=== PATIENT | female | born 2000 | race Caucasian/White ===

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

== ENCOUNTER → 2022-10-23 16:27 | Outpatient (CLI) | payer OTHER, SELFPAY ==
--- NOTE | 2022-10-23 16:27 | MR_ITS ---
PROCEDURE INFORMATION: Exam: MR Lumbar Spine Without Contrast Exam date and time: 10/23/2022 4:26 PM Age: 22 years old Clinical indication: Low back pain; Additional info: Back pain with bilateral leg weakness TECHNIQUE: Imaging protocol: Magnetic resonance imaging of the lumbar spine without contrast. COMPARISON: CR SPLUMBLM XR lumbar spine 2-3V 08/17/2017 12:31 PM FINDINGS: Bones/joints: Alignment is near anatomic. The vertebral body heights are maintained. There is disc desiccation at L4-S1 without significant loss of disc space height. There is transitional anatomy with lumbarization of S1. The marrow signal is normal. Spinal cord: Visualized cord, conus medullaris and cauda equina are unremarkable without compression. L1-L2: No significant disc bulge or herniation. No severe spinal canal stenosis. No significant neural foraminal narrowing. L2-L3: No significant disc bulge or herniation. No severe spinal canal stenosis. No significant neural foraminal narrowing. L3-L4: No significant disc bulge or herniation. No severe spinal canal stenosis. No significant neural foraminal narrowing. L4-L5: L4-L5 minimal central focal disc protrusion is seen without stenosis. L5-S1: L5-S1 there is minimal diffuse disc bulging with superimposed central focal disc protrusion measuring 6 mm AP x 10 mm transverse. This mildly narrows the spinal canal. The disc material abuts the right descending S1 nerve root without significant compression or displacement. There is minimal bilateral facet arthrosis also seen with no neural foraminal narrowing. Soft tissues: Unremarkable. IMPRESSION: Mild L5-S1 degenerative disc disease with mild spinal canal stenosis at L5-S1. The disc material contacts the right descending S1 nerve root without significant compression or displacement.
== END ==
PROVIDERS: PCP Family Medicine; Visit Provider Family Medicine
DX: M54.9 Dorsalgia, unspecified (principal); M54.50 Low back pain, unspecified; R29.898 Other symptoms and signs involving the musculoskeletal system
CPT/HCPCS: 72148; 76376

== ENCOUNTER 2022-12-28 18:46 | Emergency (ER) | payer OTHER, SELFPAY ==
[2022-12-28 19:04] VITALS: BP 131/86; PULSE 82; RESP 16; TEMP 36.7; O2SAT 97; BMI 19.6
--- NOTE | 2022-12-28 19:04 | EXP.UTC ---
Discharge Plan Disposition Patient Disposition: Home, Self-Care Condition: Good Prescriptions Prescriptions: New amoxicillin [amoxicillin] 875 mg tablet 875 mg PO Q12H Qty: 20 0RF methylprednisolone 4 mg Tablets,Dose Pack 4 mg PO DIRECTED Qty: 21 0RF [id number] [Bromfed DM] 2-30-10 mg/5 mL Syrup 5 ml PO Q6H PRN (Reason: Cough) Qty: 240 0RF No Action Ubrelvy 100 mg tablet 100 mg PO ONCE PRN (Reason: migraine headache) Qty: 10 10RF Vraylar 1.5 mg capsule 1.5 mg PO DAILY Qty: 30 2RF prednisone 20 mg tablet 20 mg PO BID 5 Days Qty: 10 0RF naproxen 500 mg tablet 500 mg PO BID Qty: 30 0RF triamcinolone acetonide 0.025 % cream 1 applic topical BID Qty: 15 0RF cyclobenzaprine 10 mg tablet 10 mg PO Q8H PRN (Reason: muscle spasm) Qty: 60 0RF meloxicam 15 mg tablet 15 mg PO DAILY Qty: 30 3RF Referrals Follow up/Referrals: Michael Drummond APRN [Primary Care Provider] - See instructions Activity Restrictions/Add. Instructions Additional Instructions/Restrictions: Drink plenty of fluids. Take tylenol or ibuprofen for pain or fever. Take the medications as directed. Follow up with your regular doctor. GO TO THE ER FOR ANY WORSENING SYMPTOMS Clinical Impressions Clinical Impression: Otitis media Stand Alone Forms Stand Alone Forms: Work/School Release Instructions Patient Instructions: Middle Ear Infection Discharge ED Provider: Adán Cummings [facility] General Stated complaint: RT ear pain Time Seen by Provider: 12/28/22 19:04 History of Present Illness Provider Complaint: She states that she has had right ear pain and pressure for the past 4 days. Related Data Previous Rx's Medication Instructions Recorded cyclobenzaprine 10 mg tablet 10 mg PO Q8H PRN muscle spasm #60 12/01/21 tabs ubrogepant 100 mg tablet (Ubrelvy) 100 mg PO ONCE PRN migraine 06/09/22 headache #10 tabs meloxicam 15 mg tablet 15 mg PO DAILY #30 tabs 10/13/22 cariprazine 1.5 mg capsule 1.5 mg PO DAILY #30 caps 12/10/22 (Vraylar) naproxen 500 mg tablet 500 mg PO BID #30 tabs 12/10/22 prednisone 20 mg tablet 20 mg PO BID 5 days #10 tabs 12/10/22 triamcinolone acetonide 0.025 % 1 applic topical BID #15 grams 12/10/22 topical cream amoxicillin 875 mg tablet 875 mg PO Q12H #20 tabs 12/28/22 ftkfxlxrxlobggg-ixiglfsmmrlkcdx-JJ 5 ml PO Q6H PRN Cough #240 mL 12/28/22 2 mg-30 mg-10 mg/5 mL oral syrup (Bromfed DM) methylprednisolone 4 mg tablets in 4 mg PO DIRECTED #21 tabs 12/28/22 a dose pack Allergies Allergy/AdvReac Type Severity Reaction Status Date / Time No Known Allergies Allergy Verified 12/28/22 19:04 [facility] Disclaimer: The information contained in this section may have been updated after the patient was seen, as this information can be updated by other users. Medical History (Updated 12/28/22 @ 19:18 by Adán Cummings APRN) MDD (major depressive disorder), recurrent, with melancholic features Social History Smoking Status: Current every day smoker tobacco type: cigarettes packs per day: 1 and e-cigarettes (client claims to smoke cigarettes and vape.) alcohol intake: current substance use type: denies use current occupational status: employed and other Travel in the last 8 weeks: None housing: house number of children: 1 ROS Obtained: Yes All systems reviewed & no additional complaints except as documented Constitutional Constitutional: Denies chills, Reports fever(s) and Reports poor appetite Eyes Eyes: Denies eye discharge ENT Ears, Nose, Mouth, and Throat: Denies ear discharge, Reports otalgia, Denies hearing loss, Denies sinus pain and Reports sore throat Cardiovascular Cardiovascular: Denies chest pain and Denies dyspnea Respiratory Respiratory: Denies chest congestion, Reports cough and Denies dyspnea Gastrointestinal Gastrointestingal: Denies abdominal pain, diarrhea, nausea or vomiting
[2022-12-28 19:24] VITALS: BP 131/86; PULSE 82; RESP 17; TEMP 36.7
== END 2022-12-28 19:25 | disposition home or self-care (01) ==
PROVIDERS: Emergency Provider Nurse Practitioner Family; PCP Nurse Practitioner Family
DX: H66.93 Otitis media, unspecified, bilateral (principal); F17.210 Nicotine dependence, cigarettes, uncomplicated; F33.9 Major depressive disorder, recurrent, unspecified
CPT/HCPCS: 99212; 99214; G0463

== ENCOUNTER 2023-02-07 20:47 | Emergency (ER) | payer OTHER, SELFPAY ==
[2023-02-07 20:48] VITALS: BP 123/85; PULSE 93; RESP 20; TEMP 36.8; O2SAT 97; BMI 20.5
[2023-02-07 21:01] LABS: Coronavirus 19, PCR Not Detected (NotDetected); Influenza A, PCR Not Detected (NotDetected); Influenza B, PCR Not Detected (NotDetected)
--- NOTE | 2023-02-07 21:50 | HMH.EDGENADL ---
Discharge Plan Disposition Patient Disposition: Home, Self-Care Chief Complaint: Fever Prescriptions Prescriptions: No Action Ubrelvy 100 mg tablet 100 mg PO ONCE PRN (Reason: migraine headache) Qty: 10 10RF Vraylar 1.5 mg capsule 1.5 mg PO DAILY Qty: 30 2RF naproxen 500 mg tablet 500 mg PO BID Qty: 30 0RF cyclobenzaprine 10 mg tablet 10 mg PO TID PRN (Reason: muscle spasm) Qty: 60 0RF Referrals Follow up/Referrals: Michael Drummond APRN [Primary Care Provider] - See instructions Activity Restrictions/Add. Instructions Additional Instructions/Restrictions: At this time is felt you are safe to be discharged home. You likely have a virus for which symptoms typically have not days. For pain please take Tylenol and ibuprofen. If new or worsening symptoms please do not hesitate to return the emergency department. If persistent symptoms beyond 7 days please follow-up with your family doctor for continued evaluation. Clinical Impressions Clinical Impression: Acute viral syndrome, Myalgia Discharge ED Provider: Colin Woodall General Adult HPI General Chief complaint: Fever Stated complaint: headache,body aches,fever Time Seen by Provider: 02/07/23 21:20 Mode of Arrival: Ambulatory Source of Information: Patient Limitations: No Limitations Description of Symptoms (Recalled from ER Triage Doc. by RN): Pt presents with complaints of DAMICO, fever, and overall body aches since yesterday. History of Present Illness HPI narrative: Patient is a 22-year-old female with no significant past medical history presents emergency department for evaluation of fever. 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 She has intermittent cough, myalgias, sore throat. Symptoms intermittently refractory to Tylenol and ibuprofen. No other acute complaints at this time. Related Data Previous Rx's Medication Instructions Recorded ubrogepant 100 mg tablet (Ubrelvy) 100 mg PO ONCE PRN migraine 06/09/22 headache #10 tabs cariprazine 1.5 mg capsule 1.5 mg PO DAILY #30 caps 01/15/23 (Vraylar) cyclobenzaprine 10 mg tablet 10 mg PO TID PRN muscle spasm #60 01/21/23 tabs naproxen 500 mg tablet 500 mg PO BID #30 tabs 01/27/23 Allergies Allergy/AdvReac Type Severity Reaction Status Date / Time No Known Allergies Allergy Verified 01/27/23 11:30 [facility] Disclaimer: The information contained in this section may have been updated after the patient was seen, as this information can be updated by other users. Medical History MDD (major depressive disorder), recurrent, with melancholic features Social History Smoking Status: Current some day smoker tobacco type: cigarettes packs per day: 1 and e-cigarettes (client claims to smoke cigarettes and vape.) alcohol intake: current substance use type: denies use current occupational status: employed and other Travel in the last 8 weeks: None housing: house number of children: 1 ROS Obtained: Yes Systems reviewed as appropriate & no additional complaints except as documented Physical Exam General General appearance: alert and in no apparent distress Head Head exam: atraumatic and normocephalic Eye Eye exam: Present PERRL and EOMI ENT ENT exam: Present mucous membranes moist; Absent normal oropharynx (Erythematous posterior oropharynx, uvula midline, no asymmetric swelling, no purulence.) Neck Neck exam: Present normal inspection Chest Chest inspection: Present normal inspection and symmetric chest wall rise Respiratory Respiratory exam: Present normal lung sounds bilaterally; Absent respiratory distress, wheezes or stridor Cardiovascular Cardiovascular exam: Present regular rate and normal rhythm Extremities Exam Extremities exam: Present normal inspection Neurological Exam Neurological exam: Present alert Ps
[2023-02-07 22:13] LABS: Strep Scrn Group A (Rapid) Negative (Negative)
[2023-02-07 22:21] VITALS: BP 113/75; PULSE 73; RESP 16; TEMP 36.7; O2SAT 99
== END 2023-02-07 22:26 | disposition home or self-care (01) ==
PROVIDERS: Emergency Provider Emergency Medicine; PCP Nurse Practitioner Family
DX: M79.18 Myalgia, other site (principal); F33.9 Major depressive disorder, recurrent, unspecified; F17.210 Nicotine dependence, cigarettes, uncomplicated; F17.290 Nicotine dependence, other tobacco product, uncomplicated; R50.9 Fever, unspecified
CPT/HCPCS: 87430; 87636; 99283

== ENCOUNTER → 2023-03-12 12:00 | Outpatient (CLI) | payer OTHER, SELFPAY | PROVIDERS: PCP Nurse Practitioner Family; Visit Provider Nurse Practitioner Family | DX: M54.50 Low back pain, unspecified (principal) | CPT/HCPCS: 87086 ==

== ENCOUNTER → 2023-04-08 15:00 | Outpatient (POV) | payer OTHER, SELFPAY ==
[2023-04-08 15:30] VITALS: BP 121/83; PULSE 87; RESP 18; O2SAT 98; BMI 20.5
--- NOTE | 2023-04-08 15:58 | EXP.PAIN.OV ---
HPI Data of Consult Patient: new to practice Consult date: 04/08/23 Requesting Physician: Miranda Brwon APRN Primary Care Provider: Michael Drummond APRN Consult Narrative Reason for consult: Low back pain, bilateral leg pain History of present illness: Ms. Wallace is a 23 year old female who presents today as a new patient. She is a referral from Michael Cunningham's office. Today she rates her pain an 8 out of 10. Patient states her pain is all in her low back and bilateral legs. Patient describes this as an aching, throbbing sensation with occasional sharp shooting pains and numbness and tingling into her lower extremities. Patient states this has been going on for approximately 1 year and just worsened over time. Patient denies any specific trauma or injury that initially led to her symptoms. 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 Patient has tried [id number] Tylenol and ibuprofen along with heat and ice and topicals with minimal relief. Patient has been prescribed prednisone, naproxen and Flexeril with no additional change. Patient is starting physical therapy on the however has done at home exercising and stretching techniques for longer than 6 weeks with minimal relief. Patient did previously see a chiropractor however this made her symptoms worse. Patient is scheduled to see neurosurgery in April to review over her options. Patient states the pain does interfere with her ability perform activities of daily living such as cooking and cleaning. Her Tera has been reviewed and is appropriate. CC: Miranda Brown APRN [facility] Disclaimer: The information contained in this section may have been updated after the patient was seen, as this information can be updated by other users. Medical History MDD (major depressive disorder), recurrent, with melancholic features Family History (Updated 04/08/23 @ 15:06 by Ellen Madsen RN) Other Unknown family medical history Social History (Updated 04/08/23 @ 15:08 by Ellen Madsen RN) Smoking Status: Current some day smoker tobacco type: cigarettes packs per day: 1 and e-cigarettes (client claims to smoke cigarettes and vape.) alcohol intake: current substance use type: denies use current occupational status: employed Travel in the last 8 weeks: None housing: house number of children: 1 Review of Systems Review of Systems Review of systems:: pertinent systems reviewed and negative unless documented below Review of systems (narrative): Review of Systems: General: No recent weight changes, no fever, no sleep disturbances Respiratory: No cough, no shortness of air, no recurring pulmonary infections Cardiovascular/peripheral vascular: No chest pain, no palpitations, no edema, no shortness of breath Gastrointestinal: No new onset incontinence, normal bowel movements reported Genitourinary: No new onset incontinence Musculoskeletal: Low back pain, bilateral leg pain Psychiatric: [Normal mood/affect] Neurological: [Denies weakness in extremities], [denies balance issues] Meds Home Medications and Allergies Home Medications Medication Instructions Recorded Confirmed Type ubrogepant 100 mg tablet (Ubrelvy) 100 mg PO ONCE PRN migraine 06/09/22 04/08/23 Rx headache #10 tabs cariprazine 1.5 mg capsule 1.5 mg PO DAILY #30 caps 01/15/23 04/08/23 Rx (Vraylar) naproxen 500 mg tablet 500 mg PO BID #30 tabs 01/27/23 04/08/23 Rx cyclobenzaprine 5 mg tablet 5 mg PO TID PRN muscle spasm #90 03/12/23 04/08/23 Rx tabs nitrofurantoin 100 mg PO Q12H 10 days #20 caps 03/12/23 04/08/23 Rx monohydrate/macrocrystals 100 mg capsule (Macrobid) prednisone 20 mg tablet 20 mg PO BID 5 days #10 tabs 03/12/23 04/08/23 Rx New Prescriptions to Start Prescriptions: Allergies Allergy/Ad
== END ==
LOC: SC.PAIN 15:00
PROVIDERS: PCP Nurse Practitioner Family; Visit Provider Nurse Practitioner Family
DX: M51.16 Intervertebral disc disorders with radiculopathy, lumbar region (principal); M48.062 Spinal stenosis, lumbar region with neurogenic claudication
CPT/HCPCS: 99202; G0463

== ENCOUNTER 2023-12-31 21:57 | Emergency (ER) | payer OTHER, SELFPAY ==
[2023-12-31 21:59] VITALS: BP 121/86; PULSE 87; RESP 16; TEMP 36.6; O2SAT 100; BMI 22.1
--- NOTE | 2023-12-31 22:17 | XR_ITS ---
PROCEDURE INFORMATION: Exam: XR Lumbosacral Spine Exam date and time: 12/31/2023 10:39 PM Age: 23 years old Clinical indication: Low back pain TECHNIQUE: Imaging protocol: Radiologic exam of the lumbosacral spine. Views: 2 or 3 views. COMPARISON: MR LUMBAR SPINE WO CON 10/23/2022 4:26 PM FINDINGS: Bones/joints: Normal. No acute fracture. Normal alignment. Soft tissues: Unremarkable. IMPRESSION: No acute findings.
--- NOTE | 2023-12-31 22:22 | ED_ITS ---
Discharge Plan Disposition Patient Disposition: Home, Self-Care Prescriptions Prescriptions: New ketorolac 10 mg tablet 10 mg PO TID 5 Days Qty: 15 0RF No Action Ubrelvy 100 mg tablet 100 mg PO ONCE PRN (Reason: migraine headache) Qty: 10 10RF cyclobenzaprine 5 mg tablet 5 mg PO TID PRN (Reason: muscle spasm) Qty: 90 0RF prednisone 20 mg tablet 20 mg PO BID 5 Days Qty: 10 0RF nitrofurantoin monohyd/m-cryst [Macrobid] 100 mg capsule 100 mg PO Q12H 10 Days Qty: 20 0RF Rx Instructions: must administer with a meal/food Vraylar 1.5 mg capsule 1.5 mg PO DAILY Qty: 30 2RF naproxen 500 mg tablet 500 mg PO BID Qty: 30 0RF Referrals Follow up/Referrals: Michael Drummond APRN [Primary Care Provider] - See instructions Activity Restrictions/Add. Instructions Additional Instructions/Restrictions: Please return to PCP if symptoms continue or worsen. You may need physical therapy or further imaging. Please take medications as directed. Please return to the ED if any emergent symptoms occur. Clinical Impressions Clinical Impression: Low back pain Qualifiers: Chronicity: acute Back pain laterality: right Sciatica presence: with sciatica Sciatica laterality: sciatica of right side Qualified Code(s): M54.41 - Lumbago with sciatica, right side Lumbar strain Qualifiers: Encounter type: initial encounter Qualified Code(s): S39.012A - Strain of muscle, fascia and tendon of lower back, initial encounter Instructions Patient Instructions: DI for Low Back Pain Print Language Print Language: Urdu Discharge ED Provider: Shimon Kim General Adult HPI <Diana Alberts (ED), [employer] - Last Filed: 12/31/23 23:26> General Chief complaint: Back Pain/Injury Stated complaint: phy ref-back pain, leg pain Time Seen by Provider: 12/31/23 21:59 Mode of Arrival: Ambulatory Source of Information: Patient Limitations: No Limitations Description of Symptoms (Recalled from ER Triage Doc. by RN): pt reports that Wednesday was was carrying 2 cases of water and mis-stepped, now having low back pain that shoots down both legs, reports hurts to move. Took Tylenol and Motrin with no help, reports last dose of Tylenol at 1900 History of Present Illness HPI narrative: This is a 23-year-old female who presents today for bilateral low back pain that shoots down to both knees. She says it is a stabbing pain. She says on Wednesday she was carrying 2 cases of water and misstepped dropping in the water causing the pain in her back. She has continued to worsen with pain since Wednesday. She says she has pain with walking, standing, lying down and any movement. States that she has taken Tylenol and Motrin for the pain and it has done nothing for the pain. States that she called her primary care doctor that was on-call and they told her to come to the emergency room. Patient states that she feels like she may have numbness at times but most of the pain is shooting. She does have tenderness of her lumbar spine and pain in the muscles on both sides of her spine. She denies any urinary pain. No bowel or bladder changes. No other pain or complaints today. Related Data Previous Rx's ?Medication ?Instructions ?Recorded ubrogepant 100 mg tablet (Ubrelvy) 100 mg PO ONCE PRN migraine 06/09/22 headache #10 tabs cariprazine 1.5 mg capsule 1.5 mg PO DAILY #30 caps 01/15/23 (Vraylar) naproxen 500 mg tablet 500 mg PO BID #30 tabs 01/27/23 cyclobenzaprine 5 mg tablet 5 mg PO TID PRN muscle spasm #90 03/12/23 tabs nitrofurantoin 100 mg PO Q12H 10 days #20 caps 03/12/23 monohydrate/macrocrystals 100 mg capsule (Macrobid) prednisone 20 mg tablet 20 mg PO BID 5 days #10 tabs 03/12/23 ketorolac 10 mg tablet 10 mg PO TID 5 days #15 tabs 12/31/23 Allergies Allergy/AdvReac Type Severity Reaction Status Date / Time No Known Allergies Allergy Verified 03/12/23 09:05 [facility] <Diana Alberts (ED), [employer] - Last Filed: 12/31/23 23:26> [facility] Disclaimer: The information contained in this section may have been updated after the patient was seen, as this information can be updated by other users. Medical History MDD (major depressive disorder), recurrent, with melancholic features Family History (Updated 04/08/23 @ 15:06 by Ellen Madsen RN) Other Unknown family medical history Social History (Updated 04/08/23 @ 15:08 by Ellen Madsen RN) Smoking Status: Current every day smoker tobacco type: cigarettes packs per day: 1 and e-cigarettes (client claims to smoke cigarettes and vape.) alcohol intake: current alcohol intake frequency: holidays/special occasions only substance use type: denies use current occupational status: employed Travel in the last 8 weeks: None housing: house number of children: 1 <Diana Alberts (ED), [employer] - Last Filed: 12/31/23 23:26> ROS Obtained: Yes Systems reviewed as appropriate & no additional complaints ex cept as documented Please see HPI Constitutional Constitutional: Reports as per HPI Physical Exam <Diana Alberts (ED), [employer] - Last Filed: 12/31/23 23:26> General General appearance: alert and in distress (Appears to be in mild pain) Head Head exam: atraumatic and normocephalic Eye Eye exam: Present normal appearance, PERRL and EOMI Respiratory Respiratory exam: Present normal lung sounds bilaterally Cardiovascular Cardiovascular exam: Present regular rate, normal rhythm, normal heart sounds, +S1 and +S2 Abdominal Exam Abdominal exam: Present soft and normal bowel sounds Extremities Exam Extremities exam: Present normal inspection, full ROM and normal capillary refill Back Exam Back exam: Present normal inspection, tenderness (Low back tenderness with spinal tenderness) and paraspinal tenderness Neurological Exam Neurological exam: Present alert, oriented X3 and normal gait Skin Skin exam: Present warm, dry and intact Medical Decision Making <Diana Alberts (ED), [employer] - Last Filed: 12/31/23 23:26> Tera Inquiry Pt receiving controlled substance: No Vital Signs: 12/31/23 21:59 12/31/23 23:32 Temperature 98 F 98.2 F Temperature Source Oral Oral Pulse Rate 80 Pulse Rate [Right] 87 Respiratory Rate 16 16 Blood Pressure 124/78 Blood Pressure [Right Arm] 121/86 Blood Pressure Mean [Right Arm] 97 Blood Pressure Source Automatic Cuff Blood Pressure Source [Right Arm] Automatic Cuff Blood Pressure Position Sitting Blood Pressure Position [Right Arm] Sitting 02 Sat by Pulse Oximetry 100 Oxygen Delivery Method Room Air Room Air Lab Data Lab Results 12/31/23 22:33: Urine Color Yellow, Urine Appearance Clear, Urine pH 6.0, Ur Specific [place] 1.020, Urine Protein Negative, Urine Glucose (UA) Negative, Urine Ketones Negative, Urine Blood Trace-i, Urine Nitrate Negative, Urine Bilirubin Negative, Urine Urobilinogen 0.2, Ur Leukocyte Esterase Trace, Urine RBC Occasional, Urine WBC 5-10, Ur Squamous Epith Cells 10-20, Urine Bacteria 4+, Urine HCG, Qual Negative Orders (Tests/Meds): ED MEDICATIONS Discontinued Medications Generic Name Dose Route Start Last Admin Trade Name Nhung PRN Reason Stop Dose Admin Ketorolac Tromethamine 30 mg 12/31/23 22:17 12/31/23 22:36 Ketorolac 30mg/Ml Vial IM 12/31/23 22:18 30 mg ONCE ONE Administration Lidocaine 1 each 12/31/23 22:21 12/31/23 22:36 Lidocaine 5% Transdermal Patch TP 12/31/23 22:22 1 each ONCE ONE Administration Methocarbamol 500 mg 12/31/23 22:20 12/31/23 22:36 Methocarbamol 500mg Tablet PO 12/31/23 22:21 500 mg ONCE ONE Administration ORDERS Category Date Time Status Lumbar spine XR 2-3 views [XR lumbar spine 2-3V] Stat Exams 12/31/23 22:17 Completed Urinalysis-Acute [Urinalysis and Microscopic] Stat Lab 12/31/23 22:33 Completed Urine , HCG Qual. Routine Lab 12/31/23 22:33 Completed Urine Culture Stat Micro 12/31/23 22:33 Received Medical Decision Narrative: Insert review patient is a 23-year-old female presenting to the emergency department for evaluation of [low back pain]. Patient is [hemodynamically stable and nontoxic-appearing upon arrival, afebrile]. Differential diagnosis includes[muscle spasms, nerve impingement, lumbar pain, among others]. Workup will be conducted with lumbar x-ray, urinalysis with test and pain medications. Initial inventions include lumbar x-ray, Toradol, lidocaine patch and Robaxin for pain. Patient did have a urine that showed trace leukocytes and 4+ bacteria. She has no symptoms including no burning with urination no freq uency and no urgency. [Imaging informally interpreted by me and remarkable for no acute findings. [Formal imaging read remarkable for no acute findings. Upon repeat evaluation [patient's pain is improved, appears better. Patient is going to follow with her PCP for additional interventions such as physical therapy or MRI if pain persist or continues. <Shimon Kim MD - Last Filed: 12/31/23 23:40> Vital Signs: 12/31/23 21:59 12/31/23 23:32 Temperature 98 F 98.2 F Temperature Source Oral Oral Pulse Rate 80 Pulse Rate [Right] 87 Respiratory Rate 16 16 Blood Pressure 124/78 Blood Pressure [Right Arm] 121/86 Blood Pressure Mean [Right Arm] 97 Blood Pressure Source Automatic Cuff Blood Pressure Source [Right Arm] Automatic Cuff Blood Pressure Position Sitting Blood Pressure Position [Right Arm] Sitting 02 Sat by Pulse Oximetry 100 Oxygen Delivery Method Room Air Room Air Lab Data Lab Results 12/31/23 22:33: Urine Color Yellow, Urine Appearance Clear, Urine pH 6.0, Ur Specific [place] 1.020, Urine Protein Negative, Urine Glucose (UA) Negative, Urine Ketones Negative, Urine Blood Trace-i, Urine Nitrate Negative, Urine Bilirubin Negative, Urine Urobilinogen 0.2, Ur Leukocyte Esterase Trace, Urine RBC Occasional, Urine WBC 5-10, Ur Squamous Epith Cells 10-20, Urine Bacteria 4+, Urine HCG, Qual Negative Orders (Tests/Meds): ED MEDICATIONS Discontinued Medications Generic Name Dose Route Start Last Admin Trade Name Nhung PRN Reason Stop Dose Admin Ketorolac Tromethamine 30 mg 12/31/23 22:17 12/31/23 22:36 Ketorolac 30mg/Ml Vial IM 12/31/23 22:18 30 mg ONCE ONE Administration Lidocaine 1 each 12/31/23 22:21 12/31/23 22:36 Lidocaine 5% Transdermal Patch TP 12/31/23 22:22 1 each ONCE ONE Administration Methocarbamol 500 mg 12/31/23 22:20 12/31/23 22:36 Methocarbamol 500mg Tablet PO 12/31/23 22:21 500 mg ONCE ONE Administration ORDERS Category Date Time Status Lumbar spine XR 2-3 views [XR lumbar spine 2-3V] Stat Exams 12/31/23 22:17 Completed Urinalysis-Acute [Urinalysis and Microscopic] Stat Lab 12/31/23 22:33 Completed Urine , HCG Qual. Routine Lab 12/31/23 22:33 Completed Urine Culture Stat Micro 12/31/23 22:33 Received Medical Decision Narrative: Insert review patient is a 23-year-old female presenting to the emergency department for evaluation of [low back pain]. Patient is [hemodynamically stable and nontoxic-appearing upon arrival, afebrile]. Differential diagnosis includes[muscle spasms, nerve impingement, lumbar pain, among others]. Workup will be conducted with lumbar x-ray, urinalysis with test and pain medications. Initial inventions include lumbar x-ray, Toradol, lidocaine patch and Robaxin for pain. Patient did have a urine that showed trace leukocytes and 4+ bacteria. She has no symptoms including no burning with urination no frequency and no urgency. [Imaging informally interpreted by me and remarkable for no acute findings. [Formal imaging read remarkable for no acute findings. Upon repeat evaluation [patient's pain is improved, appears better. Patient is going to follow with her PCP for additional interventions such as physical therapy or MRI if pain persist or continues. I was consulted by the NAVIN, and we discussed the complexity of the problems being addressed.I approved the treatment and management plan for this patient?s care in the Emergency Department, thus performing a substantive portion of the medical decision making.Signed, Shimon Kim MD Critical Care <Diana Alberts (ED), [employer] - Last Filed: 12/31/23 23:26> Critical Care Time Critical Care Time: No
[2023-12-31] MEDS: METHOCARBAMOL 500MG TABLET 500 MG PO (22:36)
[2023-12-31] MEDS: KETOROLAC 30MG/ML VIAL 30 MG IM (22:36)
[2023-12-31] MEDS: LIDOCAINE 5% TRANSDERMAL PATCH 1 EACH TP (22:36)
[2023-12-31 22:37] LABS: Microscopic, Urine URINE MICROSCOPIC (MICROSCOPIC)
[2023-12-31 22:39] LABS: Appearance,Urine CLEAR (Clear); Bilirubin,Urine Negative (Negative); Blood, Urine TRACE-I (Negative); Color,Urine YELLOW (Yellow); Glucose,Urine (UA) Negative (Negative); Ketones,Urine Negative (Negative); Leukocyte Esterase,Urine TRACE (Negative); Nitrate,Urine Negative (Negative); Protein,Urine Negative (Negative); Urobilinogen,Urine 0.2 EU/dl (0.2)
[2023-12-31 22:43] LABS: Urine Pregnancy, HCG Qual. Negative (Negative)
[2023-12-31 22:53] LABS: RBC,Urine Occasional #/hpf (0-3)
[2023-12-31 22:54] LABS: Bacteria,Urine 4+ /lpf
[2023-12-31 23:32] VITALS: BP 124/78; PULSE 80; RESP 16; TEMP 36.8; O2SAT 100
--- NOTE | 2024-01-06 09:44 | PC.NURSE ---
URINE CULTURE DISCUSSED WITH DR. MENCHACA. SPOKE WITH PT. PT CONTINUES TO HAVE BACK PAIN. ABX SENT TO PHARMACY BY DR MENCHACA
== END 2023-12-31 23:33 | disposition home or self-care (01) ==
PROVIDERS: Nurse Practitioner; Emergency Provider Emergency Medicine; PCP Nurse Practitioner Family
DX: M54.41 Lumbago with sciatica, right side (principal); S39.012A Strain of muscle, fascia and tendon of lower back, initial encounter; M25.561 Pain in right knee; M25.562 Pain in left knee; F17.210 Nicotine dependence, cigarettes, uncomplicated; X50.9XXA Other and unspecified overexertion or strenuous movements or postures, initial encounter
CPT/HCPCS: 72100; 81001; 81025; 87086; 87088; 96372; 99285; J1885

== ENCOUNTER 2024-06-12 18:02 | Emergency (ER) | payer OTHER, SELFPAY ==
[2024-06-12 18:03] VITALS: BP 114/75; PULSE 99; RESP 18; TEMP 37.2; O2SAT 98; BMI 21.1
--- NOTE | 2024-06-12 19:54 | HMH.EDGENADL ---
Discharge Plan Disposition Patient Disposition: Home, Self-Care Prescriptions Prescriptions: New amoxicillin-pot clavulanate 875-125 mg tablet 1 tab PO BID 7 Days Qty: 14 0RF chlorhexidine gluconate [Periogard] 0.12 % mouthwash 15 ml buccal BID Qty: 1893 0RF No Action Ubrelvy 100 mg tablet 100 mg PO ONCE PRN (Reason: migraine headache) Qty: 10 10RF cyclobenzaprine 5 mg tablet 5 mg PO TID PRN (Reason: muscle spasm) Qty: 90 0RF prednisone 20 mg tablet 20 mg PO BID 5 Days Qty: 10 0RF nitrofurantoin monohyd/m-cryst [Macrobid] 100 mg capsule 100 mg PO Q12H 10 Days Qty: 20 0RF Rx Instructions: must administer with a meal/food Vraylar 1.5 mg capsule 1.5 mg PO DAILY Qty: 30 2RF naproxen 500 mg tablet 500 mg PO BID Qty: 30 0RF ketorolac 10 mg tablet 10 mg PO TID 5 Days Qty: 15 0RF doxycycline hyclate 100 mg tablet 100 mg PO BID 10 Days Qty: 20 0RF Referrals Follow up/Referrals: Yesica Fishman APRN [Primary Care Provider] - See instructions Activity Restrictions/Add. Instructions Additional Instructions/Restrictions: Called around dentists in the area to have follow-up for removal of teeth 30 and 31. Call your family doctor to establish care for this visit to the emergency department and schedule follow-up within 48 hours to ensure improvement. If you have any worsening of your condition or any other concerning signs or symptoms, return to the emergency department or your primary care doctor for further evaluation. Oral rinse twice daily, antibiotic twice daily. Clinical Impressions Clinical Impression: Pain, dental Print Language Print Language: [place] Citizen Discharge ED Provider: Murtaza Thurman General Adult [facility] General Chief complaint: Dental/Oral Stated complaint: tooth pain rt side with neck pain Time Seen by Provider: 06/12/24 19:14 Mode of Arrival: Ambulatory Source of Information: Patient Limitations: No Limitations Description of Symptoms (Recalled from ER Triage Doc. by RN): PT REPORTS DENTAL PAIN TO RIGHT LOWER JAW FROM BROKEN TEETH FOR ABOUT 3 DAYS. STATES SHE WAS SEEN AT [facility] [place] LAST NIGHT AND WAS GIVEN NUMBING SHOT IN JAW STARTED ON ABX. REPORTS PAIN RADIATES TO EAR AND NECK History of Present Illness HPI narrative: Please note that above description of symptoms, in this electronic medical record under categorization of recalled from ER triage doctor by RN are reflective of an initial nursing assessment, however, is not reflective of my full history and physical exam that was personally taken and clarified. Consequentially, this preceding description of symptoms, which may include the patient's categorized chief complaint in the EMR, do not reflect my personal clinical impression, and the ultimate description of history of present illness and patient stated complaints should be deferred to this section of the note. Unless stated otherwise or congruent with this section of the note, additional signs, symptoms, or incongruence should be interpreted as inaccurate with my clinical impression. Related Data Previous Rx's ?Medication ?Instructions ?Recorded ubrogepant 100 mg tablet (Ubrelvy) 100 mg PO ONCE PRN migraine 06/09/22 headache #10 tabs cariprazine 1.5 mg capsule 1.5 mg PO DAILY #30 caps 01/15/23 (Vraylar) naproxen 500 mg tablet 500 mg PO BID #30 tabs 01/27/23 cyclobenzaprine 5 mg tablet 5 mg PO TID PRN muscle spasm #90 03/12/23 tabs nitrofurantoin 100 mg PO Q12H 10 days #20 caps 03/12/23 monohydrate/macrocrystals 100 mg capsule (Macrobid) prednisone 20 mg tablet 20 mg PO BID 5 days #10 tabs 03/12/23 ketorolac 10 mg tablet 10 mg PO TID 5 days #15 tabs 12/31/23 doxycycline hyclate 100 mg tablet 100 mg PO BID 10 days #20 tabs 01/06/24 amoxicillin 875 mg-potassium 1 tab PO BID 7 days #14 tabs 06/12/24 clavulanate 125 mg tablet chlorhexidine gluconate 0.12 % 15 ml buccal BID #1,893 mL 06/12/24 mouthwash (Periogard) Allergies Allergy/AdvReac Type Severity Reaction Status Date / Time No Known Allergies Allergy Verified 03/12/23 09:05 [facility] Disclaimer: The information contained in this section may have been updated after the patient was seen, as this information can be updated by other users. Medical History MDD (major depressive disorder), recurrent, with melancholic features Family History (Updated 04/08/23 @ 15:06 by Ellen Madsen RN) Other Unknown family medical history Social History (Updated 04/08/23 @ 15:08 by Ellen Madsen RN) Smoking Status: Current every day smoker tobacco type: cigarettes packs per day: 1 and e-cigarettes (client claims to smoke cigarettes and vape.) alcohol intake: current alcohol intake frequency: holidays/special occasions only substance use type: denies use current occupational status: employed Travel in the last 8 weeks: None housing: house number of children: 1 Have you lived/traveled outside US in past 30 days?: No Contact w/someone who lives/traveled outside US past 30 days?: No Exposure to someone with infectious disease in past 14 days?: No Do you have a fever (greater than 100.4 F or 38 C)?: No Have you tested positive for COVID-19: No Exposed to someone with COVID-19 in past 14 days?: No Do you have a sore throat?: No Do you have a cough?: No Do you have any weakness?: No Do you have any diarrhea?: No Are you experiencing any unusual bleeding?: No Do you have any muscle aches/pain?: No Do you have any abdominal pain?: No Are you experiencing loss of taste or smell?: No Other Medical History Have you received the Flu Vaccine for this season: No Have you received the Pneumonia Vaccine: No ROS Obtained: Yes All systems reviewed & no additional complaints except as documented Physical Exam General General appearance: alert Head Head exam: atraumatic and normocephalic Eye Eye exam: Present normal appearance, PERRL and EOMI ENT ENT exam: Present other (Poor dentition. Multiple cracked teeth. No evidence of tonsillitis, exudate, pharyngeal erythema, uvular deviation, palatal swelling, trismus, external neck swelling, submental induration, dental abscess, angioedema, or other abnormal alejandrina pharyngeal findings) Neck Neck exam: Present normal inspection, full ROM and trachea midline Respiratory Respiratory exam: Absent respiratory distress, wheezes, stridor, accessory muscle use or prolonged expiratory phase Cardiovascular Cardiovascular exam: Present other (Pulses equal symmetric in upper and lower extremities) Abdominal Exam Abdominal exam: Present soft; Absent distention, tenderness or pulsatile mass Extremities Exam Extremities exam: Absent edema Neurological Exam Neurological exam: Present alert, oriented X3 and CN II-XII intact; Absent motor sensory deficit Skin Skin exam: Present warm and dry; Absent diaphoresis or erythema Medical Decision Making Medical Records Medical records reviewed: Yes I reviewed the patient's medical records. Screening: Per USPSTF and CDC recommendations, given the prevalence of disease in our region, it is our hospital?s policy to screen for HIV and viral Hepatitis for all patients aged 18 and over and those with ongoing risk factors. Tera Inquiry Pt receiving controlled substance: No Tera was queried for this patient: No Vital Signs: 06/12/24 18:03 Temperature 98.9 F Temperature Source Oral Pulse Rate [Radial] 99 H Respiratory Rate 18 Blood Pressure [Left Arm] 114/75 Blood Pressure Mean [Left Arm] 88 Blood Pressure Source [Left Arm] Automatic Cuff Blood Pressure Position [Left Arm] Sitting 02 Sat by Pulse Oximetry 98 Oxygen Delivery Method Room Air Orders (Tests/Meds): ED MEDICATIONS Discontinued Medications Generic Name Dose Route Start Last Admin Trade Name Freq PRN Reason Stop Dose Admin Amoxicillin/Clavulanate Potassium 1 each 06/12/24 19:41 Amoxicillin/Clavulanate Potassium 875/125mg Tablet PO 06/12/24 19:42 ONCE ONE Lidocaine HCl 15 ml 06/12/24 19:41 Lidocaine 2% Viscous Irene 15ml Udc PO 06/12/24 19:42 ONCE ONE ORDERS Category Date Time Status HIV Combo Stat Lab 06/12/24 18:23 Ordered Hepatitis C Ab Qual. W/ RFX Stat Lab 06/12/24 18:23 Ordered Medical Decision Narrative: This is a 24-year-old female presenting with dental pain. Patient states that this pain has been getting worse over the last couple of days, went to an outside ED where they did block and gave her antibiotic, amoxicillin. States that it has not gotten any better and block wore off, coming in with pain. History obtained with patient. On physical exam, very well-appearing. She does have poor dentition, numerous cracked teeth. No evidence of tonsillitis, exudate, pharyngeal erythema, uvular deviation, palatal swelling, trismus, external neck swelling, submental induration, dental abscess, angioedema, or other abnormal alejandrina pharyngeal findings no cervical lymphadenopathy. No trismus, etc. It was explained to patient that not much can be done for the area, she needs to see a dentist. She was agreeable to this plan. We did give her dental balls for pain as well as Augmentin here, I feel Augmentin is more appropriate for coverage of oral bacteria. Patient agreeable to this plan. Nothing to drain, so no procedures were performed. I feel this is consistent with early periapical abscess versus pulpitis given physical exam. Because patient at baseline without signs or symptoms of clinical decompensation, deemed appropriate for discharge. I discussed my clinical impression with patient and answered all questions. At this time, the evidence for any other entities in the differential is insufficient to warrant any further testing or ED observation. This was explained as well. Advisory was given that persistent or worsening symptoms require further evaluation. I confirmed the understanding of this discussion. Store Cashier disclaimer Much of this encounter note is an electronic pipe bending machine operator spoken language to printed text. Electronic pipe bending machine operator of the spoken language may permit errors. Although I have reviewed the note, some errors may still exist. Critical Care Critical Care Time Critical Care Time: No
[2024-06-12] MEDS: LIDOCAINE 2% VISCOUS SOL 15ML UDC 15 ML PO (20:08)
[2024-06-12] MEDS: AMOXICILLIN/CLAVULANATE POTASSIUM 875/125MG TABLET 1 EACH PO (20:08)
[2024-06-12 20:21] VITALS: BP 113/76; PULSE 92; RESP 18; TEMP 37.2; O2SAT 99
== END 2024-06-12 20:22 | disposition home or self-care (01) ==
PROVIDERS: Emergency Provider Emergency Medicine; PCP Nurse Practitioner Family
DX: K08.89 Other specified disorders of teeth and supporting structures (principal); K03.81 Cracked tooth
CPT/HCPCS: 99282

== ENCOUNTER 2025-02-02 10:33 | Outpatient (CLI) | payer OTHER, SELFPAY ==
--- OUTSIDE RECORDS SUMMARY | 2005-01-06 | XMS_ITS | Encounter Summary ---
Author Organization [facility] Address [address] [place] [id number] Care Team Providers Care Business Applications Manager Name Role Phone Unavailable Primary Care Provider Unavailabl e Encounter Details Date Type Department Care Team (Late st Contact Info) Description 01/06/2005 Hospital Encounter [facility] Division of Pediatric Otolaryngology [address] [place] [phone] Social History Tobacco Use Types Packs/Day Years Used Date Smoking Tobacco: Every Day Smokeless Tobacco: Never Alcohol Use Standard Drinks/Week Comments Never 0 (1 standard drink = 0.6 oz pur e alcohol) AUDIT-C Answer Date Recorded Frequency of Alcohol Consumption Never 08/12/2018 Average Number of Drinks Not on file 019 Frequency of Binge Drinking Not on file 07/25 Intimate Partner Violence Answer Date R ecorded If you are in a relationship , do you feel safe in that relationship? Yes 08/12/2018 Safe in relationship? (18 and older) Not on file 08/12/2018 Safety and Environment Answer Date Seth rded Do you have any concerns of physical abuse, sexual abuse, or neglect of your child? No 08/12/2018 Is an adult hurting you or your family? No 08/12/2018 Has someone ever touched you in a sexual way that was not ok with you? No 08/12/2018 Someone hurting you or family (18 and older) Not on file 08/12/2018 Historical abuse worry Not on file 9 If you have firearms in the home, are they all in locked storage AND unloaded? Not on file 08/12/2018 Comments Unknown Sex and Gender Information Value Date Recorded Sex Assigned at Not on file Legal Sex Female 5:18 AM EST Gender Identity Not on file Sexual Orientation Not on file documented as of this encounter Functional Status documented as of this encounter Plan of Treatment Not on file documented as of this encounter Visit Diagnoses Not on filedocumented in this encounter
--- OUTSIDE RECORDS SUMMARY | 2005-01-16 | XMS_ITS | Encounter Summary ---
Author Organization [facility] Address [address] [place] [id number] Care Team Providers Care Hanger Off Name Role Phone Unavailable Primary Care Provider Unavailabl e Encounter Details Date Type Department Care Team (Late st Contact Info) Description 01/16/2005 Hospital Encounter [facility] Division of Pediatric General and Thoracic Surgery [address] [place] [phone] Social History Tobacco Use Types Packs/Day [...] Functional Status documented as of this encounter Miscellaneous Notes * Operative Report - Richard Zamora III, MD - 01/16/2005 9:09 AM EDTDATE OF OPERATION: 01/16/2005 SURGEON(S): Richard Zamora III, M.D./Grover Palmer MD PREOPERATIVE DIAGNOSIS: Adenotonsillar hypertrophy. POSTOPERATIVE DIAGNOSIS: Adenotonsillar hypertrophy. OPERATION PERFORMED: Adenotonsillar hypertrophy with airway obstruction. INDICATIONS: Adenotonsillectomy. PROCEDURE: After the child was brought to the operating room and placed in the supine position on the operating table, a general anesthetic was administered. When a suitable plane of anesthesia had been reached, the Elyse-Emmanuel mouth gag was inserted and opened to its full extent. There was no evidence of a submucus cleft palate nor of abnormal pulsatile vessels. The adenoids and tonsils were removed with electrocautery and hemostasis obtained. The child tolerated the procedure well and returned to recovery in good condition. Richard Zamora III, MD Signed via Electronic Authentication by: Richard Zamora III, MD 01/19/2005 18:48 CM/mqa A A Doc #[id number] cc: MD Richard Melendez III, MD [address] [place] [address] documented in this encounter Plan of Treatment Not on file documented as of this encounter Visit Diagnoses Not on filedocumented in this encounter
--- OUTSIDE RECORDS SUMMARY | 2025-02-05 10:37 | XMS_ITS | Clinical Summary ---
Author Organization [facility] Address [address] [place] [id number] Care Team Providers Care Front Desk Auxiliary Name Role Phone Shravan Ren MD Primary Care Provider [phone] Source Comments [facility] is fully rolled [facility] with thefollowing exceptions:[facility] Allergies No known active allergies Medications lamoTRIgine (LaMICtal) 100 MG tablet Take 100 mg by mouth 1 time a day. Active medroxyPROGESTER one Acetate (DEPO-PROVERA) 150 MG/ML injection Active cloNIDine (CATAPRES) 0.1 MG tablet Take 0.1 mg by mouth 1 time a day. Active Active Problems Problem Noted Date Diagnosed Date Abnormal uterine bleeding 08/30/2018 Dysmenorrhea 08/30/2018 Chronic pelvic pain in female 08/30/2018 Crohn's disease without complication 08/30/2018 Family History Medical History Relation Name Comments Hypercholesterolemia Father Hypertension Father Coronary Artery Disease Maternal Grandmother stents, bypasses Migraines Maternal Grandmother Myocardial Infarction Maternal Grandmother Migraines Mother Diabetes Mellitus Paternal Grandfather Irregular heartbeat Sister Bleeding Disorder Neg Hx DVT Neg Hx Pulmonary Embolism Neg Hx Relation Name Status Comments Father Alive Maternal Grandmother Mother Paternal Grandfather Sister Alive Social History Tobacco Use Types Packs/Day Years [...] on file Sexual Orientation Not on file Last Filed Vital Signs Vital Sign Reading Time Taken Comments Blood Pressure 125/77 08/24/2018 9:33 AM EDT Pulse 118 08/24/2018 9:33 AM EDT Temperature - - Respiratory Rate 16 08/24/2018 9:29 AM EDT Oxygen Saturation 100% 08/24/2018 9:29 AM EDT Inhaled Oxygen Concentration - - Weight 54.4 kg (120 lb) 08/24/2018 9:29 AM EDT Height 168 cm (5' 6.14 ) 08/24/2018 9:29 AM EDT Body Mass Index 19.29 08/24/2018 9:29 AM EDT Plan of Treatment Health Maintenance Due Date Last Done Comments MMR IMMUNIZATION (1 of 1 - S tandard series) 2002 DTAP/Tdap/Td IMMUNIZATION (1 - Tdap) 2008 VARICELLA IMMUNIZATION (1 of 2 - 13+ 2-dose series) 2014 HPV IMMUNIZATION (1 - 3-dose series) 2016 MENINGOCOCCAL B VACCINE (1 o f 2 - Standard) 2017 HEPATITIS B IMMUNIZATION (1 of 3 - 19+ 3-dose series) 2020 AMB SEASONAL FLU VACCINE (#1) 12/25/2024 COVID-19 Vaccine (1 - 2023-2 5 season) 2024 HIB IMMUNIZATION Aged Out No longer e ligible based on patient's age to complete this topic IPV IMMUNIZATION Aged Out No longer e ligible based on patient's age to complete this topic MCV4 IMMUNIZATION Aged Out No longer eligible based on patient's age to complete this topic PNEUMOCOCCAL IMMUNIZATION Aged Out No longer eligible based on patient's age to complete this topic Respiratory Syncytial Virus (RSV) <20mo Aged Out No longer eligible b ased on patient's age to complete this topic Insurance Care Teams Front Desk Auxiliary Relationship Specialty Start Date End Date Shravan Ren MD [address] [place] [address] [address] [place] [address] PCP - General External Pediatrics 06/07/18
--- OUTSIDE RECORDS SUMMARY | 2025-02-05 10:37 | XMS_ITS ---
Author Organization [facility] Address [address] [place] [id number] Phone Care Team Providers Care Nuclear Criticality Safety Engineer Name Role Phone Implementation Analyst Unavailable Unavailable Conditions or Problems No information available. Medications No information available. Medications Administered No information available. Allergies, Adverse Reactions, Alerts No information available. Results No information available. Plan of Care No information available. Procedures No information available. Vital Signs No information available. Immunizations No information available. Advance Directives No information available.
--- OUTSIDE RECORDS SUMMARY | 2025-02-05 10:37 | XMS_ITS | Clinical Summary ---
Author Organization Healthcare Address [address] [place] [address] Care Team Providers Care Cerner Analyst Name Role Phone Bhanu Michael Cox APRN Primary Care Provider [phone] Allergies No known active allergies Medications nicotine (Nicoderm CQ) 21 MG/24HR patch Place 1 patch on the skin 1 (one) time each day if needed (nicotine craving). 30 patch 11 08/21/2021 Active 28-0.8 MG tablet Take 1 tablet by mouth 1 (one) time each day. 30 tablet 08/21/2021 Active Vraylar 1.5 MG capsule Take 1 capsule (1.5 mg) by mouth 1 (one) time each day. 03/08/2023 Active cyclobenzaprine (Flexeril) 5 MG tablet Take 1 tablet (5 mg) by mouth 3 (three) times a day if needed. 03/12/2023 Active medroxyPROGESTE Ryland (Depo-Provera) 150 MG/ML suspension prefilled syringe injection syringe Active meloxicam (Mobic) 15 MG tablet Take 1 tablet (15 mg) by mouth 1 (one) time each day. 10/13/2022 Active methylPREDNISol one (Medrol Dospak) 4 MG tablets TAKE BY MOUTH DIRECTED ON INSIDE OF PACKAGE 12/29/2022 Active naproxen (Naprosyn) 500 MG tablet Take 1 tablet (500 mg) by mouth 2 (two) times a day. 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, fetus 1 05/04/2021 Resolved Problems Problem Noted Date Diagnosed Date Resolved Date Second 08/18/2021 01/14/2025 Social History Tobacco Use Types Packs/Day Years Used Date Smoking Tobacco: Every Day Cigarettes Smokeless Tobacco: Current Tobacco Cessation:Ready to Q uit: Not Asked; Counseling Given: Not Answered Alcohol Use Standard Drinks/Week Comments Not Currently 0 (1 standard drink = 0.6 oz pur e alcohol) Comments Unknown Sex and Gender Information Value Date Recorded Sex Assigned at Not on file Legal Sex Female 4:03 PM EST Gender Identity Not on file Sexual Orientation Not on file Last Filed Vital Signs Vital Sign Reading Time Taken Comments Blood Pressure 118/78 03/17/2023 11:22 AM EST Pulse 66 08/21/2021 7:29 AM EDT Temperature 36.6 C (97.8 F) 08/21/2021 7:29 AM EDT Respiratory Rate 16 08/21/2021 7:29 AM EDT Oxygen Saturation 97% 08/21/2021 7:29 AM EDT Inhaled Oxygen Concentration - - Weight 58.1 kg (128 lb) 03/17/2023 11:22 AM EST Height 167.6 cm (5' 6 ) 03/17/2023 11:22 AM EST Body Mass Index 20.66 03/17/2023 11:22 AM EST Plan of Treatment Health Maintenance Due Date Last Done Comments [facility]-Depression Screening 2001 [facility]-/Child/Adol SDOH Screenings 2001 [facility]-Varicella Vaccines (2 of 2 - 2-dose childhood series) 2005 04/05/2002 HPV Vaccines (1 - 3-dose series) 2016 [facility]-Hepatitis A Vaccines (2 of 2 - 2-dose series) 10/06/2017 04/07/2017 [facility]- SDOH Screenings 2019 [facility]-Adult SDOH Screenings 2019 [facility]-Pap Smear 2022 [facility]-DTaP,Tdap,and Td Vaccines (7 - Td or Tdap) 11/29/2022 11/29/2012, 2005, 06/07/2002, Additional history exists [id number] Vaccine ( season) 2024 12/24/2021 [facility]-Influenza Vaccine (#1) 2024 [facility]-Zoster Vaccines (1 of 2) 2051 04/05/2002 [facility]-Hepatitis B Vaccines Completed 002, 2001, 2001 [facility]-Pneumococcal Vaccine: Pediatrics (0 to 5 Years) and At-Risk Patients (6 to 49 Years) Aged Out 04/05/2002, 2001, 2001 No longer eligible based on patient's age to complete this topic [facility]-HIB Vaccines Completed 2005, 02/2002, 2001, Additional history exists [facility]-IPV Vaccines Completed 2005, 02/2002, 2001, Additional history exists [facility]-Rotavirus Vaccines Aged Out No lo nger eligible based on patient's age to complete this topic Insurance [employer] Advance Directives * Full Code (Latest Code Status on File) Date Activated Date Inactivated Comments 08/18/2021 12:18 PM 08/21/2021 3:30 PM Question Answer Comments Patient has decision-making capacity? Yes Care Teams Cerner Analyst Relationship Specialty Start Date End Date Michael Drummond APRN [address] [place] [address] MOODY Rios [id number] [facility] - General 03/17/23
--- OUTSIDE RECORDS SUMMARY | 2025-02-05 10:37 | XMS_ITS | Clinical Summary ---
Author Organization [facility] Address [address] [place] [address] Phone Care Team Providers Care Data Analyst Name Role Phone Shravan Ren MD Primary Care Provider [phone] Allergies No known active allergies Medications cyclobenzaprine (FLEXERIL) 10 mg Oral Tablet Take 1 Tab by mouth 3 times daily as needed for Muscle spasms. 10 Tab 04/15/2017 Active busPIRone (BUSPAR) 5 mg Oral Tablet Take 5 mg by mouth 2 times daily. Active citalopram (CELEXA) 10 mg Oral Tablet Take 10 mg by mouth daily. Active dicyclomine (BENTYL) 10 mg Oral Capsule Take 1 Capsule by mouth 3 times daily. 90 Capsule 10/20/2024 2:43 PM EDT 10/20/2024 Active oxyCODONE (ROXICODONE) 5 mg Oral Tablet Take 1 Tablet by mouth every 6 hours as needed for Acute Pain (R52). 12 Tablet 10/20/2024 2:43 PM EDT 10/20/2024 Active Active Problems Problem Noted Date Diagnosed Date Normocytic anemia 10/19/2024 Assessment & Plan (10/20/2024 6:52 AM EDT): Hb came down after rehydration. Monitor for s/s bleeding. Monitor VS Hypokalemia 10/18/2024 Assessment & Plan (10/20/2024 6:52 AM EDT): Replace and recheck Assessment & Plan (10/19/2024 8:54 AM EDT): Replace and recheck Assessment & Plan (10/18/2024 5:47 PM EDT): Replace and recheck Intractable abdominal pain 10/18/2024 Assessment & Plan (10/20/2024 6:52 AM EDT): EGD/C-scope 10/20/24 Endometriosis should be considered as well given her history Assessment & Plan (10/19/2024 1:19 PM EDT): Reports hematemesis and hematochezia [employer]. Possibly consistent with Crohn's flare although I cannot see recent outside records to confirm prior diagnosis of terminal ileitis Endometriosis should be considered as well given her history In 2023 there is also a referral placed for chronic interstitial cystitis although UA here was within normal limits. Recommend outpatient follow-up Assessment & Plan (10/18/2024 5:47 PM EDT): Reports hematemesis and hematochezia. Likely consistent with Crohn's flare although I cannot see recent outside records to confirm prior diagnosis of terminal ileitis Endometriosis should be considered as well given her history In 2023 there is also a referral placed for chronic interstitial cystitis although UA here was within normal limits. Recommend outpatient follow-up Reported Hx Crohn Disease Assessment & Plan (10/20/2024 6:52 AM EDT): Working diagnosis although no data to confirm diagnosis available in OSH records. No leukocytosis on arrival despite sx Lost to follow-up with GI. Previously followed with [facility] and transferred to a private provider in [place]. Patient reports diagnosis dates back to when she was as young as 8 years old. No longer taking scheduled medication for this problem prior to arrival Assessment & Plan (10/19/2024 1:19 PM EDT): Working diagnosis although no data to confirm diagnosis available in OSH records. No leukocytosis on arrival despite sx Lost to follow-up with GI. Previously followed with [facility] and transferred to a private provider in [place]. Patient reports diagnosis dates back to when she was as young as 8 years old. No longer taking scheduled medication for this problem prior to arrival Assessment & Plan (10/18/2024 5:47 PM EDT): Lost to follow-up with GI. Previously followed with [facility] and transferred to a private provider in [place]. Patient reports diagnosis dates back to when she was as young as 8 years old. No longer taking scheduled medication for this problem prior to arrival Endometriosis Assessment & Plan (10/20/2024 6:52 AM EDT): Limited review of outside records available but there is mention of possible hysteroscopy with tissue removal in October 2023. Assessment & Plan (10/19/2024 8:54 AM EDT): Limited review of outside records available but there is mention of possible hysteroscopy with tissue removal in October 2023. Assessment & Plan (10/18/2024 5:47 PM EDT): Limited review of outside records available but there is mention of possible hysteroscopy with tissue removal in October 2023. Surgical History Surgery Date Site/Laterality Comments CHOLECYSTECTOMY TONSILLECTOMY DILATION AND CURETTAGE OF UTERUS x2 Medical History Medical History Date Comments Crohn disease (HCC) Endometriosis Social History Tobacco Use Types Packs/Day Years Used Date Smoking Tobacco: Never Smokeless Tobacco: Never Alcohol Use Standard Drinks/Week Comments No 0 (1 standard drink = 0.6 oz pur e alcohol) [facility] Utilities Answer Date Recorded In the past 12 months has e electric, gas, oil, or water [employer] threatened to shut off services in your home? No 10/18/2024 Overall Financial Resource Strain (CARDIA) Answe r Date Recorded How hard is it for you to pa y for the very basics like food, housing, medical care, and heating? Not hard at all 10/18/2024 PHQ-2 Answer Date Recorded PHQ-2 Total Score 0 10/18/2024 [facility] - Occupational Stress Questionnaire Answer Date Recorded Do you feel stress - tense, restless, nervous, or anxious, or unable to sleep at night because your mind is troubled all the time - these days? Not at all 10/18/2024 Exercise Vital Sign Answer Date Recorde d On average, how many days pe r week do you engage in moderate to strenuous exercise (like a brisk walk)? 0 days 10/18/2024 On average, how many minutes do you engage in exercise at this level? 0 min 10/18/2024 Hunger Vital Sign Answer Date Recorded Within the past 12 months, y ou worried that your food would run out before you got the money to buy more. Never true 10/19/19 Within the past 12 months, t he food you bought just didn't last and you didn't have money to get more. Never true 10/18/2024 [facility] IP Transportation Answer D ate Recorded In the past 12 months, has l ack of reliable transportation kept you from medical appointments, meetings, work or from getting things needed for daily living? No 10/18/2024 Sexually Active Control Partners Comments Never Comments No Sex and Gender Information Value Date Recorded Sex Assigned at Not on file Legal Sex Female 8:08 AM EDT Gender Identity Not on file Sexual Orientation Not on file Last Filed Vital Signs Vital Sign Reading Time Taken Comments Blood Pressure 101/70 10/20/2024 10:00 AM EDT Pulse 69 10/20/2024 10:00 AM EDT Temperature 36.3 C (97.3 F) 10/20/2024 9:41 AM EDT Respiratory Rate 18 10/20/2024 10:00 AM EDT Oxygen Saturation 98% 10/20/2024 10:00 AM EDT Inhaled Oxygen Concentration - - Weight 55.2 kg (121 lb 9.6 oz) 10/18/2024 11:26 AM EDT Height 167.6 cm (5' 6 ) 10/18/2024 11:26 AM EDT Body Mass Index 19.63 10/18/2024 11:26 AM EDT Plan of Treatment Health Maintenance Due Date Last Done Comments Annual Wellness Exam 2004 HPV (1 - 3-dose series) 2016 Meningococcal B Vaccine (1 of 2 - Standard) 2017 Cervical Cancer Screening 2022 Pap Smear 2022 DTaP/TDaP/Td (7 - Td or Tdap) 11/29/2022 11/29/2012, 2005, 06/07/2002, Additional history exists COVID-19 Vaccine ( season) 2024 Influenza Vaccine (#1) 2024 Hepatitis B Vaccine Completed 04/05/2002, 2001, 2001 Pneumococcal Vaccine 0-49 Aged Out 2001, 2001, 2001 No longer eligible based on patient's age to complete this topic Insurance [facility] [employer] [place] [employer] [place] [address] [facility] [employer] [place] [employer] [place] [address] [facility] [address] [facility] [address] Advance Directives For more information, please contact: [phone] * Full Code (Latest Code Status on File) Date Activated Date Inactivated Comments 10/19/2024 8:54 AM 10/20/2024 7:16 PM Care Teams Data Analyst Relationship Specialty Start Date End Date Shravan Ren MD [address] [place] [address] PCP - General Specialist/Technologist, Other-Surgical 12/21/17
--- OUTSIDE RECORDS SUMMARY | 2025-02-05 10:38 | XMS_ITS | Encounter Summary ---
Author Organization Healthcare Address [address] 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 Name Role Phone Shravan Ren MD Primary Care Provider Michael Drummond APRN Primary Care Provider [phone] Encounter Details Date Type Department Care Team (Late st Contact Info) Description 10/23/2022 Orders Only External Location [address] [place] [address] Provider, External Social History Tobacco Use Types Packs/Day Years Used Date Smoking Tobacco: Every Day Cigarettes Smokeless Tobacco: Never Alcohol Use Standard Drinks/Week Comments Not Currently 0 (1 standard drink = 0.6 oz pur e alcohol) Comments No Sex and Gender Information Value Date Recorded Sex Assigned at Not on file Legal Sex Female 4:03 PM EST Gender Identity Not on file Sexual Orientation Not on file documented as of this encounter Plan of Treatment Not on file documented as of this encounter Procedures Procedure Name Priority Date/Time Associated Diagnosis Comments MR OUTSIDE IMAGES 10/23/2022 4:26 PM EDT documented in this encounter Results * MR transfer of outside films (10/23/2022 4:26 PM EDT) Anatomical Region Laterality Modality Magnetic Resonan ce 10/23/2022 4:26 PM EDT us External Provider IMG MRI PROCEDURES Final Resul t documented in this encounter Visit Diagnoses Not on filedocumented in this encounter Additional Health Concerns Assessment Noted Time A fall risk assessment has been complete d for the patient 07/02/2021 1:33 PM EST documented as of this encounter Care Teams Fish [employer]cher[employer] Man Relationship Specialty Start Date End Date Shravan Ren MD [address] [place] [id number] PCP - General Pediatrics 07/02/21 03/16/23 Michael Drummond APRN [address] [place], [place] [id number] PCP - General 03/17/23 documented as of this encounter
== END 2025-02-02 23:59 | disposition home or self-care (01) ==
LOC: LAB.DROPOF 02-05 10:34
PROVIDERS: PCP Nurse Practitioner Family; Visit Provider Nurse Practitioner Family
DX: Z11.3 Encounter for screening for infections with a predominantly sexual mode of transmission (principal); Z20.2 Contact with and (suspected) exposure to infections with a predominantly sexual mode of transmission
CPT/HCPCS: 80074; 87389; 87491; 87529; 87591; 87661